=== PATIENT | female | born 1950 | race Caucasian/White ===

== ENCOUNTER → 2018-04-07 | Outpatient (CLI) | payer MEDICARE, OTHER | LOC: MC.RAD 13:36 | DX: Z12.31 Encounter for screening mammogram for malignant neoplasm of breast (principal) ==

== ENCOUNTER 2018-04-18 13:45 | Outpatient (RCR) | payer MEDICARE, OTHER | END 2018-06-13 | disposition home or self-care (01) | LOC: MKS.ESL.PT | DX: M54.9 Dorsalgia, unspecified (principal) | CPT/HCPCS: G8990-GP; G8991-GP ==

== ENCOUNTER 2018-07-03 08:00 | Outpatient (RCR) | payer MEDICARE, OTHER | END 2019-05-24 09:59 | disposition home or self-care (01) | LOC: MKS.ESL.PT 08:00 | DX: M54.9 Dorsalgia, unspecified (principal) | CPT/HCPCS: G8991-GP; G8992-GP ==

== ENCOUNTER → 2020-11-21 | Outpatient (CLI) | payer MEDICARE, OTHER ==
[~2020-11-21] MED LIST: BREO IH; SYNTHROID0.075 MG/T PO; VENTOLIN0.09 MG IH
== END ==
LOC: MC.RAD 08:15
DX: Z12.31 Encounter for screening mammogram for malignant neoplasm of breast (principal)

== ENCOUNTER → 2021-04-10 | Outpatient (CLI) | payer MEDICARE, OTHER | LOC: COL.VAS 12:12 | DX: R60.0 Localized edema (principal); R06.00 Dyspnea, unspecified ==